=== PATIENT | female | born 1950 | race Caucasian/White ===

== ENCOUNTER 2018-09-13 08:06 | Outpatient (CLI) | payer MEDICARE ==
--- NOTE | 2018-09-13 08:27 | RAD ---
Right knee 3 views: 09/13/2018 COMPARISON: None HISTORY: Right knee pain FINDINGS: Mild lateral compartment narrowing. Moderate medial compartment narrowing. Prominent osteop hyte formation of the medial femoral condyle and medial tibial plateau. Mild patellofemoral joint space narrowing. No acute fracture or dislocation. IMPRESSION: Multicompartment degenerative joint disease. No acute osseous
== END 2018-09-13 08:07 | disposition home or self-care (01) ==
LOC: BICRAD 08:06
PROVIDERS: ATTEND Nurse Practitioner Family
DX: M25.561 Pain in right knee (principal); M17.11 Unilateral primary osteoarthritis, right knee